=== PATIENT | male | born 1960 | race Caucasian/White ===

== ENCOUNTER 2022-09-15 10:16 | Day surgery (SDC) | payer OTHER ==
[~2022-09-15] VITALS: Ht 167.6 cm; Wt 98.3 kg
[~2022-09-15 10:16] MED LIST: HYDACE5 PO
[2022-09-15] MEDS ORDERED: AMLODIPINE-OLM1 EAC2 (10:32)
== END 2022-09-15 12:29 | disposition home or self-care (01) ==
LOC: ORSCSDS 10:16
PROVIDERS: Internal Medicine Gastroenterology
PROC: 0DJD8ZZ Inspection of Lower Intestinal Tract, Via Natural or Artificial Opening Endoscopic (ICD-10-PCS; principal; 2022-09-15 11:45)
DX: Z12.11 Encounter for screening for malignant neoplasm of colon (principal); K59.09 Other constipation; Z79.899 Other long term (current) drug therapy
CPT/HCPCS: J2704; J7120